=== PATIENT | female | born 1980 | race Caucasian/White ===

== ENCOUNTER 2018-03-09 11:45 | Emergency (ER) | payer OTHER ==
[~2018-03-09] VITALS: Ht 175.3 cm; Wt 88.6 kg
[2018-03-09] MEDS ORDERED: ONDANSETRON 4MG/2ML VIAL (J2405) IV ONE (12:30)
[2018-03-09] MEDS ORDERED: PANTOPRAZOLE 40MG INJ (PROTONIX) (C9113) IV ONE (12:30)
[2018-03-09] MEDS ORDERED: NS 1,000 ML IV ONE (12:30)
--- NOTE | 2018-03-09 12:59 | REP ---
Acute abdominal series: Three views. History: Abdomen pain. Findings: Upright chest radiograph shows no evidence of infiltrate or free subdiaphragmatic air. There is some left base and perihilar linear scarring. Heart size is normal. Supine and erect views of the abdomen show a normal bowel gas pattern. Psoas margins and flank stripes are intact. No mass, organomegaly, or pathologic calcification is seen. Impression: Normal bowel gas pattern. No evidence of free air or significant air fluid level. Linear scarring left base and left perihilar region. Electronically Signed by Erickson Cesar MD 03/09/2018 03:49 P
[2018-03-09 13:04] LABS: BASO % 0.3 % (0.0-1.0); EOS % 0.1 % (0.0-3.0); HEMATOCRIT 39.1 % (36.0-47.0); HEMOGLOBIN 13.5 g/dl (12.0-15.5); LYMPH # 1.3 10^3/uL (1.5-4.5); LYMPH % 13.5 % (24.0-44.0); MEAN CORPUSCULAR HGB CONC 34.5 g/dl (32.0-36.5); MEAN CORPUSCULAR VOLUME 89.7 fl (80.0-96.0); MONO # 0.6 10^3/uL (0.0-0.8); MONO % 5.8 % (0.0-5.0); NEUTROPHILS # 7.9 10^3/uL (1.8-7.7); PLATELET COUNT, AUTOMATED 258 10^3/uL (150-450); RED BLOOD COUNT 4.36 10^6/uL (4.00-5.40); WHITE BLOOD COUNT 9.9 10^3/uL (4.0-10.0)
[2018-03-09 13:11] LABS: INR 1.04; PROTHROMBIN TIME 13.7 SECONDS (12.1-14.4)
[2018-03-09] MEDS: MORPHINE 2 MG/ML 1ML SYRINGE (J2270) IV PRN ×2 (13:24→14:41)
[2018-03-09 13:33] LABS: ALBUMIN 4.2 GM/DL (3.2-5.2); ALT/SGPT 18 U/L (12-78); BILIRUBIN,DIRECT 0.2 MG/DL (0.0-0.2); BILIRUBIN,TOTAL 0.7 MG/DL (0.2-1.0); BLOOD UREA NITROGEN 7 MG/DL (7-18); CARBON DIOXIDE LEVEL 20 MEQ/L (21-32); CHLORIDE LEVEL 105 MEQ/L (98-107); CREATININE FOR GFR 0.98 MG/DL (0.55-1.30); GLOMERULAR FILTRATION RATE > 60.0 (>60); GLUCOSE, FASTING 82 MG/DL (70-100); LIPASE 90 U/L (73-393); SODIUM LEVEL 137 MEQ/L (136-145); TOTAL PROTEIN 7.3 GM/DL (6.4-8.2)
[2018-03-09] MEDS ORDERED: DIFI200T PO (14:43)
[2018-03-09] MEDS ORDERED: ZOFR4TAB16 PO (14:43)
[2018-03-09 14:45] VITALS: BP 144/80
[2018-03-09] MEDS ORDERED: PLAV1TAB2 PO (14:47)
[2018-03-09] MEDS ORDERED: PRAZ5CAP PO (14:47)
== END 2018-03-09 15:13 | disposition home or self-care (01) ==
LOC: M ED 11:45
DX: R19.7 Diarrhea, unspecified (principal); R10.9 Unspecified abdominal pain; K50.90 Crohn's disease, unspecified, without complications; Z79.899 Other long term (current) drug therapy; Z79.02 Long term (current) use of antithrombotics/antiplatelets; Z88.8 Allergy status to other drugs, medicaments and biological substances; Z87.891 Personal history of nicotine dependence
CPT/HCPCS: 36415; 74021; 80048; 80076; 81001; 83605; 83690; 85025; 85610; 87088; 87186; 96361; 96374; 96375; 96376; 99284; C9113; J2270; J2405

== ENCOUNTER 2018-03-29 17:57 | Emergency (ER) | payer OTHER ==
[~2018-03-29] VITALS: Ht 175.3 cm; Wt 95.5 kg
[2018-03-29 17:57] VITALS: BP 143/81
[~2018-03-29 17:57] MED LIST: DIFI200T PO; PLAV1TAB2 PO; PRAZ5CAP PO; ZOFR4TAB16 PO
[2018-03-29] MEDS ORDERED: NS 1,000 ML IV SCH (18:30)
[2018-03-29] MEDS ORDERED: ONDANSETRON 4MG/2ML VIAL (J2405) IV ONE (18:30)
[2018-03-29 18:39] LABS: BASO % 0.5 % (0.0-1.0); EOS # 0.1 10^3/uL (0.0-0.50); EOS % 1.6 % (0.0-3.0); HEMATOCRIT 38.4 % (36.0-47.0); HEMOGLOBIN 12.4 g/dl (12.0-15.5); LYMPH # 2.3 10^3/uL (1.5-4.5); LYMPH % 26.9 % (24.0-44.0); MEAN CORPUSCULAR HEMOGLOBIN 30.2 pg (27.0-33.0); MEAN CORPUSCULAR HGB CONC 32.3 g/dl (32.0-36.5); MEAN CORPUSCULAR VOLUME 93.7 fl (80.0-96.0); MONO # 0.5 10^3/uL (0.0-0.8); MONO % 6.1 % (0.0-5.0); NEUTROPHILS # 5.6 10^3/uL (1.8-7.7); NEUTROPHILS % 64.7 % (36.0-66.0); PLATELET COUNT, AUTOMATED 266 10^3/uL (150-450); WHITE BLOOD COUNT 8.6 10^3/uL (4.0-10.0)
[2018-03-29] MEDS: MORPHINE 2 MG/ML 1ML SYRINGE (J2270) IV PRN ×2 (18:40→19:16)
[2018-03-29 19:06] LABS: HCG, SERUM QUALITATIVE NEGATIVE (NEGATIVE)
[2018-03-29] MEDS ORDERED: METOCLOPRAMIDE INJ 10MG/2ML VIAL (J2765) IV ONE (19:15)
[2018-03-29 19:18] LABS: ALBUMIN 3.7 GM/DL (3.2-5.2); ALT/SGPT 16 U/L (12-78); BILIRUBIN,DIRECT < 0.1 MG/DL (0.0-0.2); BILIRUBIN,TOTAL 0.3 MG/DL (0.2-1.0); BLOOD UREA NITROGEN 11 MG/DL (7-18); CALCIUM LEVEL 8.7 MG/DL (8.5-10.1); CARBON DIOXIDE LEVEL 25 MEQ/L (21-32); CHLORIDE LEVEL 106 MEQ/L (98-107); CREATININE FOR GFR 0.89 MG/DL (0.55-1.30); GLOMERULAR FILTRATION RATE > 60.0 (>60); GLUCOSE, FASTING 87 MG/DL (70-100); LIPASE 95 U/L (73-393); SODIUM LEVEL 139 MEQ/L (136-145); TOTAL PROTEIN 6.7 GM/DL (6.4-8.2)
--- NOTE | 2018-03-29 19:41 | REP ---
Clinical: Acute left renal colic. Technique: Axial noncontrast images from the lung bases to the pubic symphysis with coronal and sagittal re-formations. Findings: Lung bases demonstrate small pleural effusions and trace bibasilar atelectasis. Liver, spleen, pancreas, gallbladder, bilateral adrenal glands, and right kidney/ureter appear normal. The left kidney demonstrates mild pelviectasis and prominence to the ureter which may be followed to the mid pelvis where the ureter is then obscured by adjacent bowel and pelvic structures including uterus/left adnexa. No obvious intrarenal or obstructing ureteral calculus is identified, and these findings may be secondary to known prior left ureteral surgery. The enteric system is without obstruction or acute inflammatory process. There is evidence for prior appendectomy. Pelvis demonstrates relatively normal bladder and uterus/adnexa. A small amount of free fluid in the deep posterior cul-de-sac is nonspecific and likely physiologic. Small fat containing periumbilical hernia noted. No significant ascites. No free air. No significant adenopathy. Musculoskeletal structures without focal osseous abnormality. Impression: 1. Findings related to the left kidney/ureter as described above are likely related to prior surgery. No significant perinephric stranding, hydronephrosis or intrarenal/obstructing ureteral calculi are identified. Correlation with urinalysis may be warranted. 2. No further acute abdominopelvic pathology is appreciated. No significant ascites, free air or adenopathy. 3. Small bilateral pleural effusions and minimal basilar atelectasis. Electronically Signed by Yehuda Calixto MD 03/29/2018 07:32 P
[2018-03-29] MEDS ORDERED: ZOFR4TAB16 PO (20:29)
[2018-03-29] MEDS ORDERED: TRAM50TA2 PO (20:29)
[2018-03-29] MEDS ORDERED: traMADol 50 MG TAB (BULK 4 TAB ED) PO ONE (20:30)
--- NOTE | 2018-03-30 17:07 | ED PDOC ---
Post-Departure Follow-Up certified letter to pt re formal reading of ct abd/p for fu. no pcp listed. find out pcp and fax to pcp. if no pcp refer to [facility] and fax there. needs fu Elias Acosta MD Mar 30, 2018 17:07
== END 2018-03-29 20:50 | disposition home or self-care (01) ==
LOC: M ED 17:57
DX: R10.9 Unspecified abdominal pain (principal); Z88.8 Allergy status to other drugs, medicaments and biological substances
CPT/HCPCS: 36415; 74176; 80048; 80076; 81001; 83690; 84703; 85025; 87086; 96361; 96374; 96375; 96376; 99284; J2270; J2405; J2765

== ENCOUNTER 2018-04-05 12:25 | Emergency (ER) | payer OTHER ==
[~2018-04-05] VITALS: Ht 175.3 cm; Wt 97.7 kg
[~2018-04-05 12:25] MED LIST changes: +TRAM50TA2 PO
[2018-04-05] MEDS ORDERED: OXYC1CAP (12:35)
[2018-04-05] MEDS ORDERED: PARO40TA2 (12:35)
[2018-04-05] MEDS ORDERED: LORA1TAB12 (12:35)
[2018-04-05] MEDS ORDERED: ONDANSETRON 4MG/2ML VIAL (J2405) IV ONE (15:30)
[2018-04-05] MEDS: HYDROMORPHONE HCL 0.5 MG/ 0.5 ML SYRINGE (J1170 PER 1) IV PRN ×2 (16:10→16:55)
[2018-04-05 16:25] LABS: BASO % 0.4 % (0.0-1.0); EOS # 0.1 10^3/uL (0.0-0.50); HEMATOCRIT 39.6 % (36.0-47.0); HEMOGLOBIN 13.4 g/dl (12.0-15.5); LYMPH # 1.8 10^3/uL (1.5-4.5); LYMPH % 18.2 % (24.0-44.0); MEAN CORPUSCULAR HEMOGLOBIN 30.2 pg (27.0-33.0); MEAN CORPUSCULAR HGB CONC 33.8 g/dl (32.0-36.5); MEAN CORPUSCULAR VOLUME 89.2 fl (80.0-96.0); MONO # 0.6 10^3/uL (0.0-0.8); MONO % 5.9 % (0.0-5.0); NEUTROPHILS # 7.2 10^3/uL (1.8-7.7); NEUTROPHILS % 74.3 % (36.0-66.0); PLATELET COUNT, AUTOMATED 280 10^3/uL (150-450); RED BLOOD COUNT 4.44 10^6/uL (4.00-5.40); WHITE BLOOD COUNT 9.7 10^3/uL (4.0-10.0)
[2018-04-05] MEDS ORDERED: PROMETHAZINE INJ 25 MG/ML VIAL (J2550) IV ONE (16:45)
[2018-04-05 16:55] LABS: HCG, SERUM QUALITATIVE NEGATIVE (NEGATIVE)
[2018-04-05 17:00] VITALS: BP 138/77
[2018-04-05 17:02] LABS: ALBUMIN 3.6 GM/DL (3.2-5.2); ALT/SGPT 14 U/L (12-78); BILIRUBIN,DIRECT < 0.1 MG/DL (0.0-0.2); BILIRUBIN,TOTAL 0.3 MG/DL (0.2-1.0); BLOOD UREA NITROGEN 8 MG/DL (7-18); CALCIUM LEVEL 8.8 MG/DL (8.5-10.1); CARBON DIOXIDE LEVEL 22 MEQ/L (21-32); CHLORIDE LEVEL 108 MEQ/L (98-107); CREATININE FOR GFR 0.74 MG/DL (0.55-1.30); GLOMERULAR FILTRATION RATE > 60.0 (>60); GLUCOSE, FASTING 86 MG/DL (70-100); LIPASE 74 U/L (73-393); POTASSIUM SERUM 4.1 MEQ/L (3.5-5.1); SODIUM LEVEL 137 MEQ/L (136-145); TOTAL PROTEIN 6.7 GM/DL (6.4-8.2)
[2018-04-05] MEDS ORDERED: MACR100C43 PO (17:35)
[2018-04-05] MEDS ORDERED: ENDO10TA8 PO (17:35)
== END 2018-04-05 18:08 | disposition home or self-care (01) ==
LOC: M ED 12:25
DX: R10.9 Unspecified abdominal pain (principal); G89.29 Other chronic pain; Z79.891 Long term (current) use of opiate analgesic; R11.2 Nausea with vomiting, unspecified; F41.9 Anxiety disorder, unspecified; F32.9 Major depressive disorder, single episode, unspecified; K50.90 Crohn's disease, unspecified, without complications; R51 Headache; N13.70 Vesicoureteral-reflux, unspecified; Z87.42 Personal history of other diseases of the female genital tract; Z87.891 Personal history of nicotine dependence; Z88.8 Allergy status to other drugs, medicaments and biological substances
CPT/HCPCS: 80048; 80076; 81001; 83690; 84703; 85025; 87086; 96374; 96375; 96376; 99284; J1170; J2405

== ENCOUNTER 2018-04-19 21:38 | Emergency (ER) | payer OTHER ==
[~2018-04-19] VITALS: Ht 175.3 cm; Wt 90.9 kg
[~2018-04-19 21:38] MED LIST changes: +ENDO10TA8 PO; +LORA1TAB12; +MACR100C43 PO; +OXYC1CAP; +PARO40TA2
[2018-04-19] MEDS ORDERED: KEFL500C17 PO (21:45)
[2018-04-19] MEDS ORDERED: TOPA1TAB PO (21:45)
[2018-04-19] MEDS ORDERED: ALPR2TAB3 PO (21:45)
[2018-04-19] MEDS ORDERED: ONDANSETRON 4MG/2ML VIAL (J2405) IV ONE (22:00)
[2018-04-19] MEDS ORDERED: CIPROFLOXACIN 400 MG in APPROPRIATE DILUENT 1 EA IV ONE (22:00)
[2018-04-19] MEDS ORDERED: NS 1,000 ML IV ONE (22:00)
[2018-04-19] MEDS: MORPHINE 2 MG/ML 1ML SYRINGE (J2270) IV PRN ×2 (22:10→22:55)
[2018-04-19 22:23] LABS: BASO # 0.1 10^3/uL (0.0-0.2); BASO % 0.6 % (0.0-1.0); EOS # 0.3 10^3/uL (0.0-0.50); EOS % 2.7 % (0.0-3.0); HEMATOCRIT 37.3 % (36.0-47.0); HEMOGLOBIN 12.9 g/dl (12.0-15.5); LYMPH # 2.2 10^3/uL (1.5-4.5); LYMPH % 20.6 % (24.0-44.0); MEAN CORPUSCULAR HEMOGLOBIN 30.8 pg (27.0-33.0); MEAN CORPUSCULAR HGB CONC 34.6 g/dl (32.0-36.5); MONO # 0.9 10^3/uL (0.0-0.8); MONO % 8.1 % (0.0-5.0); NEUTROPHILS # 7.3 10^3/uL (1.8-7.7); NEUTROPHILS % 67.7 % (36.0-66.0); PLATELET COUNT, AUTOMATED 287 10^3/uL (150-450); RED BLOOD COUNT 4.19 10^6/uL (4.00-5.40); WHITE BLOOD COUNT 10.8 10^3/uL (4.0-10.0)
[2018-04-19 22:39] LABS: ALBUMIN 3.3 GM/DL (3.2-5.2); ALT/SGPT 20 U/L (12-78); BILIRUBIN,DIRECT < 0.1 MG/DL (0.0-0.2); BILIRUBIN,TOTAL 0.4 MG/DL (0.2-1.0); BLOOD UREA NITROGEN 8 MG/DL (7-18); CALCIUM LEVEL 8.2 MG/DL (8.5-10.1); CARBON DIOXIDE LEVEL 24 MEQ/L (21-32); CHLORIDE LEVEL 107 MEQ/L (98-107); CREATININE FOR GFR 0.89 MG/DL (0.55-1.30); GLOMERULAR FILTRATION RATE > 60.0 (>60); GLUCOSE, FASTING 84 MG/DL (70-100); LIPASE 46 U/L (73-393); SODIUM LEVEL 140 MEQ/L (136-145); TOTAL PROTEIN 6.5 GM/DL (6.4-8.2)
[2018-04-19] MEDS ORDERED: ZOFR4TAB16 PO (23:22)
[2018-04-19] MEDS ORDERED: CIPR-249 PO (23:22)
[2018-04-19] MEDS ORDERED: NORCOTAB PO (23:22)
--- NOTE | 2018-04-19 23:33 | REPVR ---
EXAM: US Retroperitoneal Limited, Kidneys EXAM DATE/TIME: 04/19/2018 10:55 PM CLINICAL HISTORY: 37 years old, female; Pain; Abdominal pain; Colic; Additional info: Right pyelo TECHNIQUE: Real-time ultrasound of the retroperitoneum with image documentation. Examination was focused on the kidneys. COMPARISON: CT ABD PELVIS W/O CONTRAST 03/29/2018 7:14 PM FINDINGS: Right kidney: Right kidney measures 11.7 x 5.7 x 4.8 cm. Left kidney: Left kidney measures 11.2 x 4.8 x 5.4 cm. Bladder: Bladder not fully distended and as such not well evaluated. Possible debris layering dependently within the urinary bladder. Ureteral jets not demonstrated. IMPRESSION: No acute findings. Electronically signed by: Gee Zaman On 04/19/2018 23:33:29 PM
[2018-04-20] VITALS: BP 130/89
== END 2018-04-20 00:22 | disposition home or self-care (01) ==
LOC: M ED 21:38
DX: N10 Acute pyelonephritis (principal); R51 Headache; Z87.891 Personal history of nicotine dependence; Z82.49 Family history of ischemic heart disease and other diseases of the circulatory system; Z79.899 Other long term (current) drug therapy; Z88.6 Allergy status to analgesic agent
CPT/HCPCS: 36415; 76775; 80048; 80076; 81001; 83690; 85025; 87088; 87186; 96365; 96375; 96376; 99284; J0744; J2270; J2405

== ENCOUNTER 2018-05-15 21:19 | Emergency (ER) | payer OTHER ==
[~2018-05-15] VITALS: Ht 175.3 cm; Wt 97.7 kg
[~2018-05-15 21:19] MED LIST changes: +ALPR2TAB3 PO; +CIPR-249 PO; +HYDR-3715 PO; +KEFL500C17 PO; +TOPA1TAB PO
[2018-05-15] MEDS ORDERED: OXYC1TAB23 PO (21:50)
[2018-05-15] MEDS ORDERED: ACETAMINOPHEN TAB 650MG DOSE (2X325MG) PO ONE (22:00)
[2018-05-15 23:05] VITALS: BP 153/74
--- NOTE | 2018-05-16 09:02 | REP ---
Right hip series: Two views. History: Right hip pain. Findings: AP and frog-leg views of the right hip show smooth rounded femoral head and intact hip joint space. Periarticular soft tissues are unremarkable. No fractures seen. Impression: Negative radiographs of the right hip. Electronically Signed by Erickson Cesar MD 05/16/2018 08:53 A
--- NOTE | 2018-05-16 09:02 | REP ---
Right shoulder: Three views. History: Right shoulder pain. Findings: Three views right shoulder demonstrate normal alignment of the glenohumeral and acromioclavicular joints. Periarticular soft tissues are unremarkable. No fracture or subluxation is seen. There is an old healed fracture of the right posterior lateral sixth rib. Impression: Old right rib fracture. Otherwise negative right shoulder radiographs. Electronically Signed by Erickson Cesar MD 05/16/2018 08:53 A
== END 2018-05-15 23:09 | disposition home or self-care (01) ==
LOC: M ED 21:19
DX: S40.011A Contusion of right shoulder, initial encounter (principal); S70.01XA Contusion of right hip, initial encounter; T74.11XA Adult physical abuse, confirmed, initial encounter; Y07.01 Husband, perpetrator of maltreatment and neglect; Z88.8 Allergy status to other drugs, medicaments and biological substances; Z79.899 Other long term (current) drug therapy

== ENCOUNTER 2018-06-21 16:32 | Emergency (ER) | payer OTHER ==
[~2018-06-21] VITALS: Ht 175.3 cm; Wt 95.3 kg
[~2018-06-21 16:32] MED LIST changes: +OXYC1TAB23 PO
[2018-06-21] MEDS ORDERED: ESCI10TA2 (16:48)
[2018-06-21] MEDS ORDERED: LORA1TAB12 (16:48)
[2018-06-21 17:42] LABS: BASO % 0.4 % (0.0-1.0); EOS # 0.1 10^3/uL (0.0-0.50); EOS % 0.7 % (0.0-3.0); HEMATOCRIT 39.7 % (36.0-47.0); HEMOGLOBIN 13.3 g/dl (12.0-15.5); LYMPH # 2.4 10^3/uL (1.5-4.5); LYMPH % 27.9 % (24.0-44.0); MEAN CORPUSCULAR HEMOGLOBIN 31.7 pg (27.0-33.0); MEAN CORPUSCULAR HGB CONC 33.5 g/dl (32.0-36.5); MEAN CORPUSCULAR VOLUME 94.7 fl (80.0-96.0); MONO # 0.5 10^3/uL (0.0-0.8); MONO % 5.7 % (0.0-5.0); NEUTROPHILS # 5.6 10^3/uL (1.8-7.7); NEUTROPHILS % 65.2 % (36.0-66.0); PLATELET COUNT, AUTOMATED 283 10^3/uL (150-450); RED BLOOD COUNT 4.19 10^6/uL (4.00-5.40); WHITE BLOOD COUNT 8.6 10^3/uL (4.0-10.0)
[2018-06-21 18:13] LABS: ALBUMIN 3.7 GM/DL (3.2-5.2); ALT/SGPT 15 U/L (12-78); BILIRUBIN,DIRECT < 0.1 MG/DL (0.0-0.2); BILIRUBIN,TOTAL 0.3 MG/DL (0.2-1.0); LIPASE 70 U/L (73-393); TOTAL PROTEIN 6.5 GM/DL (6.4-8.2)
[2018-06-21 18:14] LABS: BLOOD UREA NITROGEN 9 MG/DL (7-18); CALCIUM LEVEL 8.4 MG/DL (8.5-10.1); CARBON DIOXIDE LEVEL 22 MEQ/L (21-32); CHLORIDE LEVEL 117 MEQ/L (98-107); CPK CREATINE PHOSPHOKINASE 755 U/L (26-192); CREATININE FOR GFR 0.78 MG/DL (0.55-1.30); GLOMERULAR FILTRATION RATE > 60.0 (>60); GLUCOSE, FASTING 91 MG/DL (70-100); MB/CK RELATIVE INDEX 0.25 (< OR =4); NT-PRO BNP 182 PG/ML (<125); POTASSIUM SERUM 4.2 MEQ/L (3.5-5.1); SODIUM LEVEL 147 MEQ/L (136-145); TROPONIN I < 0.02 NG/ML (< 0.10)
[2018-06-21 18:27] LABS: HCG, SERUM QUALITATIVE NEGATIVE (NEGATIVE)
[2018-06-21] MEDS ORDERED: MORPHINE 2 MG/ML 1ML SYRINGE (J2270) IV ONE (18:30)
[2018-06-21] MEDS ORDERED: NS 1,000 ML IV ONE (18:30)
[2018-06-21] MEDS ORDERED: ONDANSETRON 4MG/2ML VIAL (J2405) IV ONE (18:30)
[2018-06-21] MEDS ORDERED: ISOVUE-370 76% 100ML VIAL (Q9967) As Ordered ONE ×2 (18:53→19:46)
--- NOTE | 2018-06-21 18:55 | REP ---
Chest one-view HISTORY: Chest pain Comparison: 03/09/2018 Linear density is present in the left lower lobe consistent with scar. The right lung is clear. The heart is normal in size. The pulmonary vasculature is normal in appearance. Impression: No acute disease. Electronically Signed by Sumit Torres MD 06/21/2018 06:47 P
[2018-06-21 20:15] VITALS: BP 125/78
--- NOTE | 2018-06-21 20:18 | REPVR ---
EXAM: CT Abdomen and Pelvis Without Contrast EXAM DATE/TIME: 06/21/2018 6:57 PM CLINICAL HISTORY: 37 years old, female; Abdominal pain; Other: Back; Additional info: Back pain TECHNIQUE: Imaging protocol: Axial computed tomography images of the abdomen and pelvis without contrast. Coronal and sagittal reformatted images were created and reviewed. Radiation optimization: All CT scans at this facility use at least one of these dose optimization techniques: automated exposure control; mA and/or kV adjustment per patient size (includes targeted exams where dose is matched to clinical indication); or iterative reconstruction. COMPARISON: CT ABD PELVIS W/O CONTRAST 03/29/2018 7:14 PM FINDINGS: Lungs: Minimal bibasilar atelectasis or scar. ABDOMEN: Liver: Normal. No mass. Gallbladder and bile ducts: The gallbladder is somewhat contracted with no stones. Pancreas: Normal. No ductal dilation. Spleen: The spleen measures 11.0 cm. Adrenals: Normal. No mass. Kidneys and ureters: Normal. No hydronephrosis. Stomach and bowel: Sutures at the cecal tip consistent with prior appendectomy. Appendix: No evidence of appendicitis. PELVIS: Bladder: Unremarkable as visualized. Reproductive: Left ovarian cyst/follicle measuring 2.0 cm. ABDOMEN and PELVIS: Intraperitoneal space: Normal. No free air. No significant fluid collection. Bones/joints: No acute fracture. No dislocation. Soft tissues: Small fat filled broad-based hernia. Surgical clips deep to the left inguinal canal. Vasculature: Normal. No abdominal aortic aneurysm. Lymph nodes: Normal. No enlarged lymph nodes. IMPRESSION: 1. Probable left ovarian cyst/follicle measuring approximately 2.0 cm since 03/29/2018. 2. Otherwise, there has been little change since the prior study. Electronically signed by: Ash Barbosa On 06/21/2018 20:18:23 PM
--- NOTE | 2018-06-21 20:22 | REPVR ---
EXAM: CT Angiography Chest With Contrast EXAM DATE/TIME: 06/21/2018 6:57 PM CLINICAL HISTORY: 37 years old, female; Chest pain; Type not specified; Patient HX: R/O pe TECHNIQUE: Imaging protocol: Axial computed tomographic angiography images of the chest with intravenous contrast using CT angiography protocol. Coronal and sagittal reformatted images were created and reviewed. 3D rendering: MIP reconstructed images were created and reviewed. Radiation optimization: All CT scans at this facility use at least one of these dose optimization techniques: automated exposure control; mA and/or kV adjustment per patient size (includes targeted exams where dose is matched to clinical indication); or iterative reconstruction. Contrast material: ISOVUE 370; Contrast volume: 75 ml; Contrast route: IV; COMPARISON: CR Abdomen,Flat Upright,PA CHEST 03/09/2018 12:43 PM FINDINGS: Pulmonary arteries: The main pulmonary artery measures 30 mm. No pulmonary embolism is identified. Aorta: The ascending thoracic aorta measures 32 mm. Lungs: Normal. No consolidation. No masses. Pleural space: Normal. No pneumothorax. No pleural effusion. Heart: Normal. No cardiomegaly. No pericardial effusion. Mediastinum: Slight induration of anterior mediastinal fat, probably residual thymic tissue. Lymph nodes: Unremarkable. No enlarged lymph nodes. Bones/joints: Unremarkable. No acute fracture. Soft tissues: Unremarkable. IMPRESSION: Negative CTA chest. No pulmonary embolism is identified. Electronically signed by: Ash Barbosa On 06/21/2018 20:21:38 PM
[2018-06-21] MEDS ORDERED: traMADol 50 MG TAB (BULK 4 TAB ED) PO ONE (20:45)
--- NOTE | 2018-06-22 16:31 | ECGEPIP ---
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
== END 2018-06-21 21:10 | disposition home or self-care (01) ==
LOC: M ED 16:32
DX: R07.9 Chest pain, unspecified (principal); N83.202 Unspecified ovarian cyst, left side; F43.10 Post-traumatic stress disorder, unspecified; K50.90 Crohn's disease, unspecified, without complications; Z79.899 Other long term (current) drug therapy
CPT/HCPCS: 71045; 71275; 74176; 80048; 80076; 81001; 82550; 82553; 83690; 83880; 84484; 84703; 85025; 93005; 93041; 94760; 96361; 96374; 96375; 99285; J2270; J2405; Q9967

== ENCOUNTER 2018-07-20 20:38 | Emergency (ER) | payer OTHER ==
[~2018-07-20] VITALS: Ht 175.3 cm; Wt 93.2 kg
[~2018-07-20 20:38] MED LIST changes: +ESCI10TA2
[2018-07-20] MEDS ORDERED: CYCL5TAB (20:43)
[2018-07-20] MEDS ORDERED: METO1TAB7 (20:43)
[2018-07-20] MEDS ORDERED: GABA600T4 (20:43)
[2018-07-20] MEDS ORDERED: NON-325T5 PO (20:45)
[2018-07-20] MEDS ORDERED: NS 1,000 ML IV ONE (21:30)
[2018-07-20] MEDS ORDERED: MORPHINE 2 MG/ML 1ML SYRINGE (J2270) IV ONE (21:45)
[2018-07-20] MEDS ORDERED: ONDANSETRON 4MG/2ML VIAL (J2405) IV ONE (22:00)
[2018-07-20] MEDS ORDERED: cefTRIAXone SOD 1 GM in D5W MINI-BAG PLUS 50 ML IV ONE (22:30)
[2018-07-20 22:41] LABS: HEMATOCRIT 40.4 % (36.0-47.0); HEMOGLOBIN 13.4 g/dl (12.0-15.5); MEAN CORPUSCULAR HEMOGLOBIN 30.7 pg (27.0-33.0); MEAN CORPUSCULAR HGB CONC 33.2 g/dl (32.0-36.5); MEAN CORPUSCULAR VOLUME 92.7 fl (80.0-96.0); PLATELET COUNT, AUTOMATED 323 10^3/uL (150-450); RED BLOOD COUNT 4.36 10^6/uL (4.00-5.40); WHITE BLOOD COUNT 8.8 10^3/uL (4.0-10.0)
[2018-07-20] MEDS ORDERED: fentaNYL 100 MCG/2 ML INJECTION (J3010) IV ONE (22:45)
[2018-07-20] MEDS ORDERED: ISOVUE-370 76% 100ML VIAL (Q9967) As Ordered ONE (23:41)
--- NOTE | 2018-07-20 23:42 | REPVR ---
EXAM: US Retroperitoneal Limited, Kidneys EXAM DATE/TIME: 07/20/2018 11:20 PM CLINICAL HISTORY: 37 years old, female; Pain; Other: Lt flank; Additional info: Left plank pain, eval for hydro, calc, abscess TECHNIQUE: Imaging protocol: Real-time ultrasound of the retroperitoneum with image documentation. Examination was focused on the kidneys. COMPARISON: RENAL US 04/19/2018 10:20 PM FINDINGS: Right kidney: The right kidney measures 10.9 cm in its cephalocaudad dimension and 4.7 x 4.5 cm in diameter. No mass, cyst or hydronephrosis. Left kidney: The left kidney measures 10.5 cm in its cephalocaudad dimension and 5.4 x 3.4 cm in diameter. No mass, cyst or hydronephrosis. Bladder: The urinary bladder measures 5.6 x 5.2 x 2.6 cm and demonstrates posterior wall thickening measuring 7 mm. IMPRESSION: 1. Mild urinary bladder wall thickening measuring 7 mm. 2. Otherwise negative renal sonogram. Electronically signed by: Ash Barbosa On 07/20/2018 23:41:55 PM
--- NOTE | 2018-07-21 00:21 | REPVR ---
EXAM: CT Abdomen and Pelvis With Contrast EXAM DATE/TIME: 07/20/2018 11:50 PM CLINICAL HISTORY: 37 years old, female; Abdominal pain; Flank; Left; Additional info: HX pyelo S/P L ureter psoas hitch proc x2, L CVA tenderness TECHNIQUE: Imaging protocol: Axial computed tomography images of the abdomen and pelvis with intravenous contrast. Coronal and sagittal reformatted images were created and reviewed. Radiation optimization: All CT scans at this facility use at least one of these dose optimization techniques: automated exposure control; mA and/or kV adjustment per patient size (includes targeted exams where dose is matched to clinical indication); or iterative reconstruction. Contrast material: ISOVUE 370; Contrast volume: 100 ml; Contrast route: IV; COMPARISON: CT ABD PELVIS W/O CONTRAST 06/21/2018 6:47 PM FINDINGS: Lungs: Minimal bibasilar atelectasis or scar which is similar to slightly increased since the prior study. ABDOMEN: Liver: Normal. No mass. Gallbladder and bile ducts: The gallbladder is somewhat contracted with no stones. Pancreas: Normal. No ductal dilation. Spleen: Normal. No splenomegaly. Adrenals: Normal. No mass. Kidneys and ureters: Normal. No hydronephrosis. Stomach and bowel: Sutures at the cecal tip consistent with prior appendectomy. Appendix: No evidence of appendicitis. PELVIS: Bladder: There is retraction of the urinary bladder to the left lateral pelvic side wall anteriorly with associated surgical clips suggesting postoperative scar. Reproductive: Retroverted uterus. ABDOMEN and PELVIS: Intraperitoneal space: Normal. No free air. No significant fluid collection. Bones/joints: No acute fracture. No dislocation. Soft tissues: Lower thoracic epidural electrode with generator in left flank subcutaneous fat. Vasculature: Normal. No abdominal aortic aneurysm. Lymph nodes: Normal. No enlarged lymph nodes. IMPRESSION: 1. There has been little change from 06/21/2018. No acute interval process is identified. 2. Retraction of the urinary bladder toward the left consistent with postoperative scar. 3. Resolution of left ovarian cyst/follicle since the prior study. Electronically signed by: Ash Barbosa On 07/21/2018 00:21:26 AM
[2018-07-21] MEDS ORDERED: KEFL500C17 PO (01:29)
[2018-07-21 01:36] VITALS: BP 122/69
== END 2018-07-21 01:56 | disposition home or self-care (01) ==
LOC: M ED 20:38
DX: N39.0 Urinary tract infection, site not specified (principal); Z87.828 Personal history of other (healed) physical injury and trauma; Z87.448 Personal history of other diseases of urinary system; Z79.899 Other long term (current) drug therapy; Z88.6 Allergy status to analgesic agent
CPT/HCPCS: 74177; 76775; 80047; 81001; 83605; 84702; 85027; 87088; 87186; 96361; 96374; 96375; 99283; J0696; J2270; J2405; J3010; Q9967